=== PATIENT | male | born 1940 | race Caucasian/White ===

== ENCOUNTER 2019-03-04 13:38 | Emergency (ER) | payer OTHER ==
[~2019-03-04] VITALS: Ht 180.3 cm; Wt 97.7 kg
[2019-03-04 14:05] VITALS: Ht 180.3 cm; Wt 97.7 kg
[2019-03-04] MEDS ORDERED: ELIQUIS5 MG PO (14:06)
[2019-03-04] MEDS ORDERED: MULTI-DAY VITAM1 TAB PO (14:07)
[2019-03-04] MEDS ORDERED: VITAMIN B-121000 MCG PO (14:07)
[2019-03-04] MEDS ORDERED: TIROSINT137 MCG PO (14:07)
[2019-03-04 15:45] VITALS: BP 142/89
== END 2019-03-04 15:30 | disposition home or self-care (01) ==
LOC: D.ER 13:38
DX: I82.401 Acute embolism and thrombosis of unspecified deep veins of right lower extremity (principal)